=== PATIENT | male | born 1955 | race American Indian/Alaskan Native ===

== ENCOUNTER 2018-11-22 08:52 | Emergency (ER) | payer OTHER ==
[2018-11-22] MEDS ORDERED: IBUPROFEN PO ONE (09:54)
--- NOTE | 2018-11-22 09:54 | Emergency Department Report ---
ED Recheck HPI - General Chief Complaint: Extremity Injury, Upper Stated Complaint: LT ARM/WRIST INJURY Time Seen by Provider: 11/22/18 09:53 Source: patient Mode of arrival: Ambulatory Limitations: No Limitations - History of Present Illness Initial Comments: PT SEEN AT [facility] FOR SORE WRIST. HE WAS TOLD TO SEE ANOTHER DOCTOR IF SWELLING DID NOT GO DOWN. PT CO PAIN AND ONGOING SWELLING; WHICH IS MINIMAL ON EXAM-- SO HE CAME TO ER. - Related Data Previous Rx's Medication Instructions Recorded Last Taken Type traMADol [Ultram] 50 mg PO Q6HR PRN #10 tablet 11/22/18 Unknown Rx Allergies Allergy/AdvReac Type Severity Reaction Status Date / Time No Known Allergies Allergy Unverified 04/23/14 11:37 ED Review of Systems ROS: Stated complaint: LT ARM/WRIST INJURY Other details as noted in HPI Comment: All other systems reviewed and negative ED Past Medical Hx - Past Medical History Previous Medical History?: Yes Hx Hypertension: Yes - Surgical History Past Surgical History?: No - Family History Family history: no significant - Social History Smoking Status: Current Every Day Smoker Substance Use Type: Alcohol - Medications Home Medications: Home Medications Medication Instructions Recorded Confirmed Last Taken Type traMADol [Ultram] 50 mg PO Q6HR PRN #10 tablet 11/22/18 Unknown Rx ED Physical Exam - General Limitations: No Limitations General appearance: alert - ENT ENT exam: Present: normal exam - Neck Neck exam: Present: normal inspection - Respiratory Respiratory exam: Present: normal lung sounds bilaterally - Cardiovascular Cardiovascular Exam: Present: regular rate - Expanded Upper Extremity Exam Left Upper Arm exam: Present: normal inspection Elbow exam: Present: normal inspection Forearm Wrist exam: Present: full ROM, swelling (MILD), other (NO SNUFF BOX TENDERNESS) Hand Wrist exam: Present: normal inspection Neuro motor exam: Present: wrist extension intact, thumb opposition intact, thumb IP flexion intact, thumb adduction intact, fingers 2-5 abduction intact Vascular: Present: normal capillary refill, radial pulse, ulnar pulse ED Course Vital Signs 11/22/18 09:11 Temperature 98.1 F Pulse Rate 88 Respiratory 18 Rate Blood Pressure 140/108 O2 Sat by Pulse 97 Oximetry ED Recheck MDM - Core Measures Measure Exclusions: not indicated - Differential Diagnosis RO FX - Medical Decision Making PT IN ARM SLING ON ARRIVAL FX NOTED SPLINT PLACED ICE MEDICATED FOR PAIN BP NOTED ELEVATED - NO CP NO SOB INSTRUCTED TO MONITOR NEUROVASC INTACT PT INSTRUCTED ON DC PLAN OF CARE INCLUDING ORTHO FOLLOW UP DC HOME WITH Vital Signs 11/22/18 09:11 Temperature 98.1 F Pulse Rate 88 Respiratory 18 Rate Blood Pressure 140/108 O2 Sat by Pulse 97 Oximetry Critical care attestation.: If time is entered above; I have spent that time in minutes in the direct care o f this critically ill patient, excluding procedure time. ED Disposition Clinical Impression: Radius fracture, Elevated blood pressure reading Disposition: DC-01 TO HOME OR SELFCARE Is pt being admited?: No Does the pt Need Aspirin: No Condition: Stable Instructions: Wrist Fracture in Adults (ED) Additional Instructions: SPLINT ICE/REST/ELEVATE SEE ORTHO MD JESSY REFERRAL BELOW MOTRIN OR TYLENOL FOR MILD TO MOD PAIN ' ULTRAM FOR SEVERE PAIN Prescriptions: traMADol [Ultram] 50 mg PO Q6HR PRN #10 tablet PRN Reason: Pain Referrals: [facility] MD EVARISTO [Primary Care Provider] - 3-5 Days ERIC VILLAR MD [Staff Physician] - 3-5 Days Time of Disposition: 10:20
--- NOTE | 2018-11-22 10:55 | XRay Report ---
LEFT WRIST, 4 VIEWS INDICATION: Left wrist pain after fall from ladder. COMPARISON: None. IMPRESSION: A subtle nondisplaced, impacted fracture is identified in the distal radial metaphysis. Subtle fracture lines appear to extend to the radiocarpal joint. The distal ulna and carpal bones are intact. No significant DJD. Signer Name: Alex Brenner Jr, MD Signed: 11/22/2018 10:50 AM Workstation Name: [id number]
[2018-11-22] MEDS ORDERED: NORCO 5/325 PO ONE (11:06)
[2018-11-22 12:03] VITALS: BP 147/102
== END 2018-11-22 12:08 | disposition home or self-care (01) ==
LOC: ED 08:52
DX: S52.502A Unspecified fracture of the lower end of left radius, initial encounter for closed fracture (principal); I10 Essential (primary) hypertension; F17.200 Nicotine dependence, unspecified, uncomplicated; Z79.899 Other long term (current) drug therapy; W18.39XA Other fall on same level, initial encounter; Y93.89 Activity, other specified; Y92.89 Other specified places as the place of occurrence of the external cause; Y99.8 Other external cause status